=== PATIENT | male | born 1980 | race Two or more races ===

== ENCOUNTER 2022-11-22 09:10 | Emergency (ER) | payer OTHER ==
[~2022-11-22] VITALS: Ht 175.3 cm; Wt 73.0 kg
[2022-11-22 09:17] VITALS: TEMP 98.6
[2022-11-22] MEDS ORDERED: LIDOCAINE HCL/MPF 1% 30 ML VIAL IJ ONE (10:10)
[2022-11-22] MEDS ORDERED: LIDOCAINE HCL/PF 1% 30 ML VIAL TP ONE (10:30)
[2022-11-22 10:47] LABS: BASOPHILS # (AUTO) 0.1 K/uL (0.0-0.2); EOSINOPHILS # (AUTO) 0.1 K/uL (0.0-0.7); MONOCYTES # (AUTO) 0.6 K/uL (0.1-1.30)
[2022-11-22 10:50] LABS: BASOPHILS % (AUTO) 0.7 % (0.0-2.0); CALCIUM, SERUM 9.2 mg/dL (8.5-10.1); CARBON DIOXIDE 26 mmol/L (21-32); CHLORIDE 101 mmol/L (98-107); CREATININE 1.3 mg/dL (0.6-1.3); EOSINOPHILS % (AUTO) 0.5 % (0.0-6.0); GLUCOSE 110 mg/dL (74-106); HEMATOCRIT 37 % (39-51); MEAN CORPUSCULAR HEMOGLOBIN 25 PG (26.0-33.0); MEAN CORPUSCULAR HGB CONC 32 g/dl (31.0-36.0); MEAN CORPUSCULAR VOLUME 78 fL (80-96); MONOCYTES % (AUTO) 5.4 % (2.0-12.0); NEUTROPHILS % (AUTO) 80.4 % (43.0-81.0); PLATELET COUNT (AUTO) 446 K/uL (150-450); POTASSIUM 3.7 mmol/L (3.5-5.1); RED BLOOD CELL COUNT(AUTO) 4.78 MIL/uL (4.5-6.0); RED CELL DISTRIBUTION WIDTH 13.9 % (11.5-15.0); SODIUM SERUM 136 mmol/L (136-145); UREA NITROGEN, BLOOD 16 mg/dL (7-18); WHITE BLOOD COUNT (AUTO) 11.9 K/uL (4.3-11.0)
[2022-11-22 10:51] LABS: LYMPHOCYTES # (AUTO) 1.6 K/uL (0.8-4.8); NEUTROPHILS # (AUTO) 9.6 K/uL (1.8-8.9)
[2022-11-22 10:55] LABS: ALANINE AMINOTRANSFERASE 24 U/L (12-78); ALBUMIN 3.7 g/dL (3.4-5.0); ALKALINE PHOSPHATASE 86 U/L (46-116); ASPARTATE AMINOTRANSFERASE 23 U/L (15-37); BILIRUBIN,DIRECT 0.1 mg/dL (0.0-0.2); BILIRUBIN,TOTAL 0.6 mg/dL (0.2-1.0); TOTAL PROTEIN, SERUM 7.6 g/dL (6.4-8.2)
[2022-11-22 10:56] LABS: ACETAMINOPHEN <10 ug/ml (10-30); ALCOHOL, BLOOD < 3 mg/dL (0-10); SALICYLATE 1.3 mg/dL (2.8-20.0)
[2022-11-22 13:45] VITALS: BP 142/87; O2SAT 100
== END 2022-11-22 13:45 | disposition home or self-care (01) ==
LOC: ER 09:29
DX: S01.112A Laceration without foreign body of left eyelid and periocular area, initial encounter (principal); S60.512A Abrasion of left hand, initial encounter; S09.90XA Unspecified injury of head, initial encounter; Z60.2 Problems related to living alone; V19.9XXA Pedal cyclist (driver) (passenger) injured in unspecified traffic accident, initial encounter; Y93.89 Activity, other specified; Y92.89 Other specified places as the place of occurrence of the external cause; Y99.8 Other external cause status
CPT/HCPCS: 12013; 36415; 70450; 71045; 72125; 73130; 80048; 80076; 80143; 80320; 85025; 99284; A6403; J3490; G0480

== ENCOUNTER 2023-04-19 17:48 | Emergency (ER) | payer OTHER ==
[~2023-04-19] VITALS: Ht 175.3 cm; Wt 63.5 kg
[2023-04-19 18:01] VITALS: BP 130/74; TEMP 98.2
[2023-04-19] MEDS ORDERED: CLINDAMYCIN HCL 150 MG CAPSULE ONE (18:21)
[2023-04-19] MEDS ORDERED: KETOROLAC TROMETHAMINE INJ 30 MG/ML VIAL ONE (18:21)
[2023-04-19] MEDS ORDERED: CLIN300C12 PO (18:21)
[2023-04-19] MEDS: KETOROLAC TROMETHAMINE INJ 60 MG/2 ML VIAL IM ONE (18:35)
[2023-04-19] MEDS: CLINDAMYCIN HCL 150 MG CAPSULE PO ONE (18:36)
[2023-04-19 18:37] VITALS: O2SAT 100
== END 2023-04-19 18:51 | disposition home or self-care (01) ==
LOC: ER 17:55
DX: L02.212 Cutaneous abscess of back [any part, except buttock and flank] (principal); Z60.2 Problems related to living alone
CPT/HCPCS: 99283; 96372; J1885

== ENCOUNTER 2024-05-16 15:43 | Emergency (ER) | payer OTHER ==
[~2024-05-16] VITALS: Ht 175.3 cm; Wt 74.8 kg
[~2024-05-16 15:43] MED LIST: CLIN300C12 PO
[2024-05-16] MEDS ORDERED: SULF1TAB48 PO (17:04)
[2024-05-16] MEDS ORDERED: KETOROLAC TROMETHAMINE 15 MG/ML VIAL ONE (17:04)
[2024-05-16] MEDS ORDERED: CEPH-570 PO (17:04)
[2024-05-16] MEDS: KETOROLAC TROMETHAMINE 15 MG/ML VIAL IM ONE (17:15)
[2024-05-16] MEDS ORDERED: IBUP-1490 PO (17:20)
[2024-05-16 17:27] VITALS: BP 138/88; TEMP 98.9; O2SAT 98
== END 2024-05-16 17:28 | disposition home or self-care (01) ==
LOC: ER 15:55
DX: L03.116 Cellulitis of left lower limb (principal); Z79.899 Other long term (current) drug therapy
CPT/HCPCS: 99285; 93971; 96372; J1885

== ENCOUNTER 2024-10-09 21:12 | Emergency (ER) | payer OTHER ==
[~2024-10-09] VITALS: Ht 175.3 cm; Wt 68.0 kg
[~2024-10-09 21:12] MED LIST changes: +CEPH-570 PO; +IBUP-1490 PO; +SULF1TAB48 PO
[2024-10-09 22:22] VITALS: BP 130/91; TEMP 98.5; O2SAT 98
[2024-10-09 22:51] LABS: APPEARANCE,URINE SLIGHTLY CLOUDY (CLEAR); BLOOD, URINE TRACE-INTA Ery/uL (NEGATIVE); LEUKOCYTE ESTERASE ,URINE 2+ (NEGATIVE); NITRITE, URINE NEGATIVE (NEGATIVE); UGLUCOSE NEGATIVE (NEGATIVE)
[2024-10-09] MEDS ORDERED: AZITHROMYCIN 250 MG TABLET ONE (22:51)
[2024-10-09] MEDS: AZITHROMYCIN 250 MG TABLET PO ONE (22:54)
[2024-10-09] MEDS ORDERED: DOXY100C2 PO (23:14)
[2024-10-09 23:18] LABS: ADD URINE CULTURE YES
[2024-10-09 23:19] LABS: SQUAMOUS EPITHELIAL CELL,UR Few /HPF (None Seen)
== END 2024-10-09 23:23 | disposition home or self-care (01) ==
LOC: ER 21:18
DX: N34.2 Other urethritis (principal); Z11.3 Encounter for screening for infections with a predominantly sexual mode of transmission; Z60.2 Problems related to living alone; Z79.899 Other long term (current) drug therapy
CPT/HCPCS: 81001; 87086-TC; 87491